=== PATIENT | male | born 1945 | race Two or more races ===

== ENCOUNTER 2024-05-12 17:52 | Inpatient (IN) | payer OTHER ==
[~2024-05-12] VITALS: Ht 188 cm; Wt 90.7 kg
[2024-05-12] MEDS ORDERED: diphenhydrAMINE HCL 50 MG/ML VIAL ONE (19:53)
[2024-05-12] MEDS ORDERED: OLANZAPINE 10 MG VIAL IM ONE (19:53)
[2024-05-12] MEDS: OLANZAPINE 10 MG VIAL IM ONE ×2 (19:59→23:30)
[2024-05-12] MEDS: diphenhydrAMINE HCL 50 MG/ML VIAL IM ONE (19:59)
[2024-05-12 20:48] LABS: BASOPHILS % (AUTO) 0.2 % (0.0-2.0); EOSINOPHILS # (AUTO) 0.1 K/uL (0.0-0.7); EOSINOPHILS % (AUTO) 1.6 % (0.0-6.0); HEMATOCRIT 40 % (39-51); LYMPHOCYTES # (AUTO) 1.5 K/uL (0.8-4.8); LYMPHOCYTES % (AUTO) 18.6 % (20.0-44.0); MEAN CORPUSCULAR HEMOGLOBIN 35 PG (26.0-33.0); MEAN CORPUSCULAR HGB CONC 35 g/dl (31.0-36.0); MEAN CORPUSCULAR VOLUME 98 fL (80-96); MONOCYTES # (AUTO) 0.7 K/uL (0.1-1.30); NEUTROPHILS # (AUTO) 5.7 K/uL (1.8-8.9); NEUTROPHILS % (AUTO) 70.6 % (43.0-81.0); PLATELET COUNT (AUTO) 158 K/uL (150-450); RED BLOOD CELL COUNT(AUTO) 4.06 MIL/uL (4.5-6.0); RED CELL DISTRIBUTION WIDTH 12.8 % (11.5-15.0)
[2024-05-12 21:02] LABS: CARBON DIOXIDE 26 mmol/L (21-32); CHLORIDE 105 mmol/L (98-107); GLUCOSE 114 mg/dL (74-106); POTASSIUM 4.1 mmol/L (3.5-5.1); SODIUM SERUM 138 mmol/L (136-145); UREA NITROGEN, BLOOD 12 mg/dL (7-18)
[2024-05-12 21:15] LABS: ALANINE AMINOTRANSFERASE 29 U/L (12-78); ALBUMIN 3.3 g/dL (3.4-5.0); ALKALINE PHOSPHATASE 75 U/L (46-116); ASPARTATE AMINOTRANSFERASE 30 U/L (15-37); BILIRUBIN,DIRECT 0.1 mg/dL (0.0-0.2); BILIRUBIN,TOTAL 0.3 mg/dL (0.2-1.0)
[2024-05-12 21:18] LABS: ACETAMINOPHEN <10 ug/ml (10-30); ALCOHOL, BLOOD < 3 mg/dL (0-10); SALICYLATE 0.7 mg/dL (2.8-20.0)
[2024-05-13] MEDS ORDERED: OLANZAPINE 10 MG VIAL IM ONE (00:11)
[2024-05-13 01:32] LABS: APPEARANCE,URINE CLEAR (CLEAR); BILIRUBIN,URINE NEGATIVE (NEGATIVE); BLOOD, URINE 1+ Ery/uL (NEGATIVE); COLOR,URINE YELLOW (YELLOW); KETONES,URINE NEGATIVE (NEGATIVE); LEUKOCYTE ESTERASE ,URINE NEGATIVE (NEGATIVE); NITRITE, URINE NEGATIVE (NEGATIVE); PH,URINE 6.5 (5.0-8.0); PROTEIN,URINE NEGATIVE (NEGATIVE); UGLUCOSE NEGATIVE (NEGATIVE); UROBILINOGEN,URINE 0.2 EU/dL (0.2)
[2024-05-13 01:33] LABS: ADD URINE CULTURE NO; BACTERIA,URINE Rare /HPF (None Seen); SQUAMOUS EPITHELIAL CELL,UR Few /HPF (None Seen); WBC,URINE 0-2 /HPF (0-3)
[2024-05-13 01:51] LABS: AMPHETAMINE, URINE NEGATIVE (NEGATIVE); BARBITURATE, URINE NEGATIVE (NEGATIVE); BENZODIAZEPINE, URINE NEGATIVE (NEGATIVE); CANNABINOID, URINE NEGATIVE (NEGATIVE); COCCAINE, URINE NEGATIVE (NEGATIVE); OPIATE, URINE NEGATIVE (NEGATIVE); PHENCYCLIDINE SCREEN,URINE NEGATIVE (NEGATIVE)
[2024-05-13 22:40] VITALS: BP 138/74; TEMP 98.7; O2SAT 97
[2024-05-13] MEDS ORDERED: MAG HYDROX/AL HYDROX/SIMETH 30 ML UDC PO PRN (23:30)
[2024-05-13] MEDS ORDERED: clonazePAM 1 MG TABLET PO PRN (23:30)
[2024-05-13] MEDS ORDERED: ACETAMINOPHEN 325 MG TABLET PO PRN (23:30)
[2024-05-13] MEDS ORDERED: MAGNESIUM HYDROXIDE 30 ML UDC PO PRN (23:30)
[2024-05-13] MEDS ORDERED: TEMAZEPAM 7.5 MG CAPSULE PO PRN (23:30)
[2024-05-13] MEDS: BLOOD SUGAR DIAGNOSTIC 1 EACH STRIP IN ONE (23:35)
[2024-05-14] MEDS: TEMAZEPAM 7.5 MG CAPSULE PO PRN (00:35)
[2024-05-14 08:00] VITALS: BP 139/85; TEMP 97.8; O2SAT 96
[2024-05-14] MEDS ORDERED: DONEPEZIL 5 MG TABLET PO SCH (08:00)
[2024-05-14] MEDS: QUETIAPINE FUMARATE 25 MG TABLET PO SCH (08:40)
[2024-05-14] MEDS: MEMANTINE HCL 5 MG TABLET PO SCH (08:40)
[2024-05-14] MEDS: diphenhydrAMINE HCL 50 MG/ML VIAL IM ONE (11:49)
[2024-05-14] MEDS: OLANZAPINE 10 MG VIAL IM ONE (11:49)
[2024-05-14] MEDS ORDERED: diphenhydrAMINE HCL 50 MG/ML VIAL IM PRN (12:00)
[2024-05-14 16:00] VITALS: BP 98/62; TEMP 97.9; O2SAT 98
[2024-05-14 20:00] VITALS: BP 114/66; TEMP 97.6; O2SAT 98
[2024-05-14] MEDS: DONEPEZIL 5 MG TABLET PO SCH (21:16)
[2024-05-14] MEDS: QUETIAPINE FUMARATE 100 MG TABLET PO SCH (21:17)
[2024-05-15 08:00] VITALS: BP 115/68; TEMP 97.8; O2SAT 98
[2024-05-15] MEDS: MEMANTINE HCL 5 MG TABLET PO SCH (08:45)
[2024-05-15] MEDS: QUETIAPINE FUMARATE 25 MG TABLET PO SCH (08:47)
[2024-05-15] MEDS: DIVALPROEX SODIUM 125 MG TABLET.DR PO SCH (13:00)
[2024-05-15 16:00] VITALS: BP 142/76; TEMP 97.9; O2SAT 98
[2024-05-15 16:49] LABS: BASOPHILS % (AUTO) 0.1 % (0.0-2.0); EOSINOPHILS % (AUTO) 0.1 % (0.0-6.0); HEMATOCRIT 42 % (39-51); HEMOGLOBIN 14.3 g/dL (13.5-17.5); LYMPHOCYTES # (AUTO) 1.9 K/uL (0.8-4.8); LYMPHOCYTES % (AUTO) 10.2 % (20.0-44.0); MEAN CORPUSCULAR HEMOGLOBIN 34 PG (26.0-33.0); MEAN CORPUSCULAR HGB CONC 34 g/dl (31.0-36.0); MEAN CORPUSCULAR VOLUME 102 fL (80-96); MONOCYTES % (AUTO) 10.7 % (2.0-12.0); NEUTROPHILS # (AUTO) 14.7 K/uL (1.8-8.9); NEUTROPHILS % (AUTO) 78.9 % (43.0-81.0); PLATELET COUNT (AUTO) 153 K/uL (150-450); RED BLOOD CELL COUNT(AUTO) 4.18 MIL/uL (4.5-6.0); RED CELL DISTRIBUTION WIDTH 13.7 % (11.5-15.0); WHITE BLOOD COUNT (AUTO) 18.6 K/uL (4.3-11.0)
[2024-05-15 17:24] LABS: CALCIUM, SERUM 8.9 mg/dL (8.5-10.1)
[2024-05-16 08:00] VITALS: BP 109/72; TEMP 98.4; O2SAT 99
[2024-05-16] MEDS: MEMANTINE HCL 5 MG TABLET PO ONE (12:45)
[2024-05-16] MEDS: QUETIAPINE FUMARATE 25 MG TABLET PO ONE (12:45)
[2024-05-16 16:00] VITALS: BP 118/98; TEMP 98.4; O2SAT 97
[2024-05-16 20:25] VITALS: BP 116/73; TEMP 98.3; O2SAT 97
[2024-05-17 08:00] VITALS: BP 107/66; TEMP 97.9; O2SAT 98
[2024-05-17] MEDS: QUETIAPINE FUMARATE 25 MG TABLET PO SCH (13:26)
[2024-05-17 16:00] VITALS: BP 110/69; TEMP 97.9; O2SAT 97
[2024-05-17 20:13] VITALS: BP 125/70; TEMP 98.7; O2SAT 96
[2024-05-18 20:09] VITALS: BP 122/101; TEMP 97.9; O2SAT 96
[2024-05-19 07:35] LABS: BASOPHILS # (AUTO) 0.1 K/uL (0.0-0.2); BASOPHILS % (AUTO) 0.8 % (0.0-2.0); EOSINOPHILS # (AUTO) 0.3 K/uL (0.0-0.7); EOSINOPHILS % (AUTO) 4.9 % (0.0-6.0); HEMATOCRIT 40 % (39-51); HEMOGLOBIN 13.7 g/dL (13.5-17.5); LYMPHOCYTES # (AUTO) 2.6 K/uL (0.8-4.8); LYMPHOCYTES % (AUTO) 36.6 % (20.0-44.0); MEAN CORPUSCULAR HEMOGLOBIN 34 PG (26.0-33.0); MEAN CORPUSCULAR HGB CONC 35 g/dl (31.0-36.0); MEAN CORPUSCULAR VOLUME 99 fL (80-96); MONOCYTES % (AUTO) 13.6 % (2.0-12.0); NEUTROPHILS # (AUTO) 3.1 K/uL (1.8-8.9); NEUTROPHILS % (AUTO) 44.1 % (43.0-81.0); PLATELET COUNT (AUTO) 199 K/uL (150-450); RED BLOOD CELL COUNT(AUTO) 4.02 MIL/uL (4.5-6.0); RED CELL DISTRIBUTION WIDTH 12.7 % (11.5-15.0)
[2024-05-19] MEDS ORDERED: QUETIAPINE FUMARATE 25 MG TABLET PO SCH (09:00)
[2024-05-19] MEDS: DIVALPROEX SODIUM 125 MG TABLET.DR PO SCH (09:06)
[2024-05-19] MEDS: QUETIAPINE FUMARATE 25 MG TABLET PO SCH (09:06)
[2024-05-19] MEDS: risperiDONE 1 MG TABLET PO SCH (09:06)
[2024-05-19 16:00] VITALS: BP 112/90; TEMP 98.7; O2SAT 100
[2024-05-20 08:00] VITALS: BP 112/65; TEMP 97.7; O2SAT 95
[2024-05-20] MEDS: clonazePAM 0.5 MG TABLET PO PRN (08:07)
[2024-05-20 16:00] VITALS: BP 130/85; TEMP 98; O2SAT 100
[2024-05-20 20:00] VITALS: BP 107/71; TEMP 98.1; O2SAT 100
[2024-05-21 08:00] VITALS: BP 117/79; TEMP 98; O2SAT 98
== END 2024-05-21 13:00 | DRG 885 ==
LOC: ER 17:55 → GPS 05-13 20:48
PROVIDERS: ADMIT Nurse Practitioner Psychiatric/Mental Health
DX: F20.9 Schizophrenia, unspecified (principal); E46 Unspecified protein-calorie malnutrition; F02.82 Dementia in other diseases classified elsewhere, unspecified severity, with psychotic disturbance; F02.83 Dementia in other diseases classified elsewhere, unspecified severity, with mood disturbance; F02.84 Dementia in other diseases classified elsewhere, unspecified severity, with anxiety; F02.818 Dementia in other diseases classified elsewhere, unspecified severity, with other behavioral disturbance; F02.811 Dementia in other diseases classified elsewhere, unspecified severity, with agitation; F29 Unspecified psychosis not due to a substance or known physiological condition; E88.09 Other disorders of plasma-protein metabolism, not elsewhere classified; G30.9 Alzheimer's disease, unspecified; F32.A Depression, unspecified; R73.9 Hyperglycemia, unspecified; Z79.899 Other long term (current) drug therapy; Z91.148 Patient's other noncompliance with medication regimen for other reason; D72.829 Elevated white blood cell count, unspecified
CPT/HCPCS: 36415; 70450-TC; 80048-TC; 80061-TC; 80076-TC; 81001; 82962-TC; 85025-TC; 97112-TC; 97116-TC; 97530-TC; G0480; J1200; J3490

== ENCOUNTER 2024-05-29 16:32 | Inpatient (IN) | payer OTHER ==
[~2024-05-29] VITALS: Ht 188 cm; Wt 90.7 kg
[2024-05-29 17:36] LABS: BASOPHILS % (AUTO) 0.1 % (0.0-2.0); EOSINOPHILS % (AUTO) 0.1 % (0.0-6.0); HEMATOCRIT 36 % (39-51); HEMOGLOBIN 12.5 g/dL (13.5-17.5); LYMPHOCYTES # (AUTO) 0.9 K/uL (0.8-4.8); LYMPHOCYTES % (AUTO) 8.2 % (20.0-44.0); MEAN CORPUSCULAR HEMOGLOBIN 34 PG (26.0-33.0); MEAN CORPUSCULAR HGB CONC 34 g/dl (31.0-36.0); MEAN CORPUSCULAR VOLUME 99 fL (80-96); MONOCYTES # (AUTO) 1.6 K/uL (0.1-1.30); MONOCYTES % (AUTO) 14.8 % (2.0-12.0); NEUTROPHILS # (AUTO) 8.3 K/uL (1.8-8.9); NEUTROPHILS % (AUTO) 76.8 % (43.0-81.0); PLATELET COUNT (AUTO) 168 K/uL (150-450); RED BLOOD CELL COUNT(AUTO) 3.68 MIL/uL (4.5-6.0); RED CELL DISTRIBUTION WIDTH 13.2 % (11.5-15.0); WHITE BLOOD COUNT (AUTO) 10.8 K/uL (4.3-11.0)
[2024-05-29 17:49] LABS: ALANINE AMINOTRANSFERASE 42 U/L (12-78); ALBUMIN 2.7 g/dL (3.4-5.0); ALCOHOL, BLOOD < 3 mg/dL (0-10); ALKALINE PHOSPHATASE 77 U/L (46-116); ASPARTATE AMINOTRANSFERASE 49 U/L (15-37); BILIRUBIN,DIRECT 0.3 mg/dL (0.0-0.2); BILIRUBIN,TOTAL 0.8 mg/dL (0.2-1.0); CALCIUM, SERUM 8.4 mg/dL (8.5-10.1); CARBON DIOXIDE 25 mmol/L (21-32); CHLORIDE 104 mmol/L (98-107); CREATININE 1.5 mg/dL (0.6-1.3); GLUCOSE 110 mg/dL (74-106); POTASSIUM 4.1 mmol/L (3.5-5.1); SODIUM SERUM 139 mmol/L (136-145); TOTAL PROTEIN, SERUM 6.8 g/dL (6.4-8.2); UREA NITROGEN, BLOOD 30 mg/dL (7-18)
[2024-05-29 17:59] LABS: ACETAMINOPHEN <10 ug/ml (10-30)
[2024-05-29 20:44] LABS: APPEARANCE,URINE CLEAR (CLEAR); BILIRUBIN,URINE NEGATIVE (NEGATIVE); BLOOD, URINE 2+ Ery/uL (NEGATIVE); COLOR,URINE YELLOW (YELLOW); KETONES,URINE 1+ mg/dL (NEGATIVE); LEUKOCYTE ESTERASE ,URINE 2+ (NEGATIVE); NITRITE, URINE NEGATIVE (NEGATIVE); PROTEIN,URINE 1+ mg/dl (NEGATIVE); UGLUCOSE NEGATIVE (NEGATIVE)
[2024-05-29 20:51] LABS: AMPHETAMINE, URINE NEGATIVE (NEGATIVE); BARBITURATE, URINE NEGATIVE (NEGATIVE); BENZODIAZEPINE, URINE NEGATIVE (NEGATIVE); CANNABINOID, URINE NEGATIVE (NEGATIVE); COCCAINE, URINE NEGATIVE (NEGATIVE); OPIATE, URINE NEGATIVE (NEGATIVE); PHENCYCLIDINE SCREEN,URINE NEGATIVE (NEGATIVE)
[2024-05-29 21:01] LABS: ADD URINE CULTURE YES; RBC,URINE 21-50 /HPF (0-2); SQUAMOUS EPITHELIAL CELL,UR Few /HPF (None Seen); WBC,URINE 21-50 /HPF (0-3)
[2024-05-29 21:02] LABS: BACTERIA,URINE Moderate /HPF (None Seen)
[2024-05-29] MEDS: CEPHALEXIN MONOHYDRATE 500 MG CAPSULE PO ONE (21:08)
[2024-05-29] MEDS ORDERED: CEPHALEXIN MONOHYDRATE 500 MG CAPSULE PO ONE (21:08)
[2024-05-30] MEDS ORDERED: DONE5TAB7 PO (01:04)
[2024-05-30] MEDS ORDERED: RISP0.5T65 PO (01:05)
[2024-05-30] MEDS ORDERED: MEMA10TA PO (01:05)
[2024-05-30] MEDS ORDERED: QUET25TA PO (01:06)
[2024-05-30] MEDS ORDERED: DIVA-78 PO (01:08)
[2024-05-30 01:40] VITALS: BP 130/80; TEMP 97.9; O2SAT 98
[2024-05-30] MEDS ORDERED: TEMAZEPAM 7.5 MG CAPSULE PO PRN (02:30)
[2024-05-30] MEDS ORDERED: ACETAMINOPHEN 325 MG TABLET PO PRN (02:30)
[2024-05-30] MEDS ORDERED: MAGNESIUM HYDROXIDE 30 ML UDC PO PRN (02:30)
[2024-05-30] MEDS ORDERED: clonazePAM 0.5 MG TABLET PO PRN ×2 (02:30)
[2024-05-30] MEDS ORDERED: MAG HYDROX/AL HYDROX/SIMETH 30 ML UDC PO PRN (02:30)
[2024-05-30] MEDS: BLOOD SUGAR DIAGNOSTIC 1 EACH STRIP IN ONE (03:08)
[2024-05-30 08:00] VITALS: BP 126/72; TEMP 97.9; O2SAT 98
[2024-05-30] MEDS: MEMANTINE HCL 5 MG TABLET PO SCH (08:32)
[2024-05-30] MEDS: CEPHALEXIN MONOHYDRATE 500 MG CAPSULE PO SCH (08:32)
[2024-05-30 16:00] VITALS: BP 90/66; TEMP 98; O2SAT 96
[2024-05-30] MEDS: DONEPEZIL 5 MG TABLET PO SCH (21:57)
[2024-05-30] MEDS: risperiDONE 1 MG TABLET PO SCH (22:13)
[2024-05-30] MEDS ORDERED: DIVALPROEX SODIUM 250 MG TABLET.DR PO ONE (22:22)
[2024-05-30] MEDS: DIVALPROEX SODIUM 250 MG TABLET.DR PO SCH (22:26)
[2024-05-31 08:00] VITALS: BP 100/55; TEMP 97.8; O2SAT 97
[2024-05-31 15:10] VITALS: BP 100/67; TEMP 97.9; O2SAT 96
[2024-06-01 08:00] VITALS: BP 100/60; TEMP 97.9; O2SAT 100
[2024-06-01 08:04] LABS: CALCIUM, SERUM 8.2 mg/dL (8.5-10.1); CREATININE 1.1 mg/dL (0.6-1.3); POTASSIUM 3.5 mmol/L (3.5-5.1)
[2024-06-01 08:07] LABS: BASOPHILS % (AUTO) 0.4 % (0.0-2.0); EOSINOPHILS # (AUTO) 0.1 K/uL (0.0-0.7); EOSINOPHILS % (AUTO) 2.3 % (0.0-6.0); HEMATOCRIT 33 % (39-51); HEMOGLOBIN 11.5 g/dL (13.5-17.5); LYMPHOCYTES # (AUTO) 1.6 K/uL (0.8-4.8); LYMPHOCYTES % (AUTO) 24.1 % (20.0-44.0); MEAN CORPUSCULAR HEMOGLOBIN 34 PG (26.0-33.0); MEAN CORPUSCULAR HGB CONC 35 g/dl (31.0-36.0); MEAN CORPUSCULAR VOLUME 98 fL (80-96); MONOCYTES # (AUTO) 0.9 K/uL (0.1-1.30); MONOCYTES % (AUTO) 13.6 % (2.0-12.0); NEUTROPHILS # (AUTO) 3.8 K/uL (1.8-8.9); NEUTROPHILS % (AUTO) 59.6 % (43.0-81.0); PLATELET COUNT (AUTO) 218 K/uL (150-450); RED BLOOD CELL COUNT(AUTO) 3.38 MIL/uL (4.5-6.0); RED CELL DISTRIBUTION WIDTH 12.9 % (11.5-15.0); WHITE BLOOD COUNT (AUTO) 6.4 K/uL (4.3-11.0)
[2024-06-01] MEDS: PALIPERIDONE PALMITATE 156 MG/ML SYRINGE IM ONE (14:41)
[2024-06-01 16:00] VITALS: BP 117/83; TEMP 98.7; O2SAT 98
[2024-06-01] MEDS: TEMAZEPAM 7.5 MG CAPSULE PO PRN (21:15)
[2024-06-02 08:00] VITALS: BP 120/78; TEMP 98.7; O2SAT 99
[2024-06-02 16:00] VITALS: BP 100/68; TEMP 98.7; O2SAT 96
[2024-06-02 20:00] VITALS: BP 110/64; TEMP 98.5; O2SAT 97
[2024-06-03 08:00] VITALS: BP 115/74; TEMP 97.7; O2SAT 98
[2024-06-03 16:00] VITALS: BP 116/68; TEMP 98.2; O2SAT 100
[2024-06-03 20:00] VITALS: BP 110/67; TEMP 98.5; O2SAT 100
[2024-06-04 16:00] VITALS: BP 107/70; TEMP 98; O2SAT 97
[2024-06-04 19:55] VITALS: BP 105/49; TEMP 97.9; O2SAT 99
[2024-06-05 08:00] VITALS: BP 112/66; TEMP 98.5; O2SAT 96
[2024-06-05 16:00] VITALS: BP 105/66; TEMP 97.7; O2SAT 96
[2024-06-05 22:16] VITALS: BP 109/64; TEMP 97.7; O2SAT 96
[2024-06-06 08:00] VITALS: BP 115/57; TEMP 98.2; O2SAT 98
[2024-06-06 15:08] VITALS: BP 126/69; TEMP 98.4; O2SAT 98
[2024-06-06 20:38] VITALS: BP 117/63; TEMP 98.4; O2SAT 98
[2024-06-07 08:00] VITALS: BP 114/71; TEMP 98.2; O2SAT 100
[2024-06-07 16:00] VITALS: BP 122/82; TEMP 97.9; O2SAT 100
[2024-06-07] MEDS: PALIPERIDONE PALMITATE 117 MG/0.75 ML SYRINGE IM ONE (18:12)
[2024-06-07 22:20] VITALS: BP 126/70; TEMP 98.1; O2SAT 100
[2024-06-08 08:00] VITALS: BP 103/79; TEMP 97.7; O2SAT 100
== END 2024-06-08 13:05 | DRG 885 ==
LOC: ER 17:40 → GPS 05-30 01:08
PROVIDERS: ADMIT Nurse Practitioner Psychiatric/Mental Health; ATTEND Internal Medicine
DX: F20.9 Schizophrenia, unspecified (principal); N17.0 Acute kidney failure with tubular necrosis; F02.818 Dementia in other diseases classified elsewhere, unspecified severity, with other behavioral disturbance; N39.0 Urinary tract infection, site not specified; F02.84 Dementia in other diseases classified elsewhere, unspecified severity, with anxiety; F02.811 Dementia in other diseases classified elsewhere, unspecified severity, with agitation; E46 Unspecified protein-calorie malnutrition; G30.9 Alzheimer's disease, unspecified; N40.0 Benign prostatic hyperplasia without lower urinary tract symptoms; Z79.899 Other long term (current) drug therapy; Z73.6 Limitation of activities due to disability; B96.89 Other specified bacterial agents as the cause of diseases classified elsewhere; E86.9 Volume depletion, unspecified; Z91.148 Patient's other noncompliance with medication regimen for other reason
CPT/HCPCS: 36415; 80048-TC; 80061-TC; 80076-TC; 81001; 85025-TC; 87086-TC; 97112-TC; 97116-TC; 97530-TC; G0480; J2426

== ENCOUNTER 2024-07-24 18:45 | Inpatient (IN) | payer MEDICARE, OTHER ==
[~2024-07-24] VITALS: Ht 167.6 cm; Wt 81.3 kg
[~2024-07-24 18:45] MED LIST: DIVA-78 PO; DONE5TAB7 PO; MEMA10TA PO; QUET25TA PO; RISP0.5T65 PO
[2024-07-24] MEDS: IV NS 0.9% 1,000 ML BAG IV ONE (19:30)
[2024-07-24 19:40] LABS: BASOPHILS % (AUTO) 0.4 % (0.0-2.0); EOSINOPHILS # (AUTO) 0.1 K/uL (0.0-0.7); EOSINOPHILS % (AUTO) 0.6 % (0.0-6.0); HEMATOCRIT 43 % (39-51); HEMOGLOBIN 14.3 g/dL (13.5-17.5); LYMPHOCYTES # (AUTO) 1.9 K/uL (0.8-4.8); LYMPHOCYTES % (AUTO) 18.9 % (20.0-44.0); MEAN CORPUSCULAR HEMOGLOBIN 32 PG (26.0-33.0); MEAN CORPUSCULAR HGB CONC 33 g/dl (31.0-36.0); MEAN CORPUSCULAR VOLUME 98 fL (80-96); MONOCYTES # (AUTO) 1.1 K/uL (0.1-1.30); MONOCYTES % (AUTO) 10.7 % (2.0-12.0); NEUTROPHILS # (AUTO) 7.1 K/uL (1.8-8.9); NEUTROPHILS % (AUTO) 69.4 % (43.0-81.0); PLATELET COUNT (AUTO) 173 K/uL (150-450); RED BLOOD CELL COUNT(AUTO) 4.42 MIL/uL (4.5-6.0); RED CELL DISTRIBUTION WIDTH 14.6 % (11.5-15.0); WHITE BLOOD COUNT (AUTO) 10.2 K/uL (4.3-11.0)
[2024-07-24 19:45] LABS: APPEARANCE,URINE CLOUDY (CLEAR); BILIRUBIN,URINE NEGATIVE (NEGATIVE); BLOOD, URINE 2+ Ery/uL (NEGATIVE); COLOR,URINE YELLOW (YELLOW); KETONES,URINE 1+ mg/dL (NEGATIVE); LEUKOCYTE ESTERASE ,URINE 1+ (NEGATIVE); NITRITE, URINE POSITIVE (NEGATIVE); PROTEIN,URINE 1+ mg/dl (NEGATIVE); UGLUCOSE NEGATIVE (NEGATIVE); UROBILINOGEN,URINE 0.2 EU/dL (0.2)
[2024-07-24 19:54] LABS: ALANINE AMINOTRANSFERASE 52 U/L (12-78); ALBUMIN 3.2 g/dL (3.4-5.0); ALKALINE PHOSPHATASE 91 U/L (46-116); ASPARTATE AMINOTRANSFERASE 126 U/L (15-37); BILIRUBIN,DIRECT 0.2 mg/dL (0.0-0.2); BILIRUBIN,TOTAL 0.7 mg/dL (0.2-1.0); CALCIUM, SERUM 9.3 mg/dL (8.5-10.1); CARBON DIOXIDE 26 mmol/L (21-32); CHLORIDE 110 mmol/L (98-107); GLUCOSE 105 mg/dL (74-106); SODIUM SERUM 145 mmol/L (136-145); TOTAL PROTEIN, SERUM 6.8 g/dL (6.4-8.2); UREA NITROGEN, BLOOD 25 mg/dL (7-18)
[2024-07-24 20:02] LABS: ADD URINE CULTURE YES; BACTERIA,URINE 4+ /HPF (None Seen); WBC,URINE 51-80 /HPF (0-3)
[2024-07-24 20:15] LABS: SERUM AMMONIA 12 umol/L (11-32)
[2024-07-24] MEDS: CEFTRIAXONE 1GM BAG (ER ONLY) 50 ML IV ONE (21:30)
[2024-07-24] MEDS ORDERED: CEFTRIAXONE 1GM BAG (ER ONLY) 50 ML IV ONE (21:31)
[2024-07-24] MEDS ORDERED: ONDANSETRON HCL/PF 4 MG/2 ML VIAL IVP PRN (23:00)
[2024-07-24] MEDS ORDERED: ACETAMINOPHEN 325 MG TABLET PO PRN (23:00)
[2024-07-25] MEDS: DONEPEZIL 5 MG TABLET PO SCH (00:54)
[2024-07-25] MEDS: ENOXAPARIN SODIUM 40 MG/0.4 ML DISP.SYRIN SQ SCH (00:54)
[2024-07-25] MEDS: IV NS 0.9% 1,000 ML IV PRN (01:05)
[2024-07-25 07:29] LABS: BASOPHILS % (AUTO) 0.4 % (0.0-2.0); EOSINOPHILS # (AUTO) 0.1 K/uL (0.0-0.7); EOSINOPHILS % (AUTO) 0.5 % (0.0-6.0); HEMATOCRIT 42 % (39-51); LYMPHOCYTES # (AUTO) 1.6 K/uL (0.8-4.8); LYMPHOCYTES % (AUTO) 15.1 % (20.0-44.0); MEAN CORPUSCULAR HEMOGLOBIN 33 PG (26.0-33.0); MEAN CORPUSCULAR HGB CONC 33 g/dl (31.0-36.0); MEAN CORPUSCULAR VOLUME 98 fL (80-96); MONOCYTES # (AUTO) 1.3 K/uL (0.1-1.30); MONOCYTES % (AUTO) 12.6 % (2.0-12.0); NEUTROPHILS # (AUTO) 7.4 K/uL (1.8-8.9); NEUTROPHILS % (AUTO) 71.4 % (43.0-81.0); PLATELET COUNT (AUTO) 166 K/uL (150-450); RED BLOOD CELL COUNT(AUTO) 4.29 MIL/uL (4.5-6.0); RED CELL DISTRIBUTION WIDTH 14.3 % (11.5-15.0); WHITE BLOOD COUNT (AUTO) 10.4 K/uL (4.3-11.0)
[2024-07-25 07:44] LABS: CALCIUM, SERUM 9.3 mg/dL (8.5-10.1); CARBON DIOXIDE 26 mmol/L (21-32); CHLORIDE 113 mmol/L (98-107); CREATININE 0.9 mg/dL (0.6-1.3); GLUCOSE 94 mg/dL (74-106); MAGNESIUM 2.4 mg/dL (1.8-2.4); PHOSPHORUS 3.6 mg/dL (2.5-4.9); POTASSIUM 4.2 mmol/L (3.5-5.1); SODIUM SERUM 151 mmol/L (136-145); UREA NITROGEN, BLOOD 26 mg/dL (7-18)
[2024-07-25 08:18] VITALS: BP 146/90; TEMP 98.4; O2SAT 97
[2024-07-25] MEDS: DIVALPROEX SODIUM 500 MG TABLET.DR PO SCH (08:53)
[2024-07-25] MEDS: risperiDONE-M 0.5 MG TAB.RAPDIS PO SCH (08:53)
[2024-07-25] MEDS: MEMANTINE HCL 5 MG TABLET PO SCH (08:53)
[2024-07-25] MEDS: QUETIAPINE FUMARATE 25 MG TABLET PO SCH (08:54)
[2024-07-25] MEDS ORDERED: RISPERIDONE 0.25 MG TAB.RAPDIS PO SCH (09:00)
[2024-07-25] MEDS: IV D5/0.45 NACL 1,000 ML IV SCH (10:26)
[2024-07-25 19:00] VITALS: BP 125/86; TEMP 97.5; O2SAT 96
[2024-07-25] MEDS: CEFTRIAXONE 1 G in IV D5W 50 ML IV SCH (20:35)
[2024-07-25 21:52] VITALS: BP 144/79; TEMP 97.9; O2SAT 96
[2024-07-26 07:11] LABS: BASOPHILS % (AUTO) 0.3 % (0.0-2.0); EOSINOPHILS # (AUTO) 0.1 K/uL (0.0-0.7); EOSINOPHILS % (AUTO) 0.5 % (0.0-6.0); HEMATOCRIT 38 % (39-51); LYMPHOCYTES # (AUTO) 1.2 K/uL (0.8-4.8); LYMPHOCYTES % (AUTO) 11.5 % (20.0-44.0); MEAN CORPUSCULAR HEMOGLOBIN 33 PG (26.0-33.0); MEAN CORPUSCULAR HGB CONC 34 g/dl (31.0-36.0); MEAN CORPUSCULAR VOLUME 97 fL (80-96); MONOCYTES # (AUTO) 1.3 K/uL (0.1-1.30); MONOCYTES % (AUTO) 12.9 % (2.0-12.0); NEUTROPHILS # (AUTO) 7.6 K/uL (1.8-8.9); NEUTROPHILS % (AUTO) 74.8 % (43.0-81.0); PLATELET COUNT (AUTO) 170 K/uL (150-450); RED BLOOD CELL COUNT(AUTO) 3.91 MIL/uL (4.5-6.0); RED CELL DISTRIBUTION WIDTH 14.2 % (11.5-15.0); WHITE BLOOD COUNT (AUTO) 10.1 K/uL (4.3-11.0)
[2024-07-26 07:21] LABS: CALCIUM, SERUM 8.4 mg/dL (8.5-10.1); CREATININE 0.9 mg/dL (0.6-1.3); PHOSPHORUS 3.2 mg/dL (2.5-4.9); POTASSIUM 3.7 mmol/L (3.5-5.1)
[2024-07-26 08:36] VITALS: BP 135/76; TEMP 98.6; O2SAT 96
[2024-07-26] MEDS: IV D5/0.45 NACL 1,000 ML IV PRN (12:15)
[2024-07-26 16:11] VITALS: BP 138/87; TEMP 98.5; O2SAT 96
[2024-07-26 20:00] VITALS: BP 98/55; TEMP 98.6; O2SAT 95
[2024-07-27 04:54] LABS: ABG BASE EXCESS -0.4 mmol/L (-2.0-3.0); ABG OXYGEN SATURATION 92.6 % (94.0-98.0); ABG PCO2 32.7 mmHg (35.0-48.0); ABG PO2 66.5 mmHg (83.0-108.0); ABG TOTAL HEMOGLOBIN 13.4 G/dL (13.5-17.5); COHb 0.8 % (0.5-1.5); MetHb 0.3 % (0.0-1.5); O2Hb 91.6 % (94.0-97.0); SITE, ABG LEFT RADIAL
[2024-07-27 06:59] LABS: BASOPHILS % (AUTO) 0.2 % (0.0-2.0); HEMATOCRIT 37 % (39-51); HEMOGLOBIN 12.4 g/dL (13.5-17.5); LYMPHOCYTES # (AUTO) 1.3 K/uL (0.8-4.8); LYMPHOCYTES % (AUTO) 9.6 % (20.0-44.0); MEAN CORPUSCULAR HEMOGLOBIN 33 PG (26.0-33.0); MEAN CORPUSCULAR HGB CONC 34 g/dl (31.0-36.0); MEAN CORPUSCULAR VOLUME 98 fL (80-96); MONOCYTES # (AUTO) 1.3 K/uL (0.1-1.30); MONOCYTES % (AUTO) 9.8 % (2.0-12.0); NEUTROPHILS # (AUTO) 10.5 K/uL (1.8-8.9); NEUTROPHILS % (AUTO) 80.4 % (43.0-81.0); PLATELET COUNT (AUTO) 142 K/uL (150-450); RED BLOOD CELL COUNT(AUTO) 3.78 MIL/uL (4.5-6.0); RED CELL DISTRIBUTION WIDTH 14.5 % (11.5-15.0); WHITE BLOOD COUNT (AUTO) 13.1 K/uL (4.3-11.0)
[2024-07-27 07:10] LABS: CALCIUM, SERUM 8.9 mg/dL (8.5-10.1); CREATININE 1.1 mg/dL (0.6-1.3); MAGNESIUM 2.2 mg/dL (1.8-2.4); PHOSPHORUS 3.1 mg/dL (2.5-4.9); POTASSIUM 3.6 mmol/L (3.5-5.1)
[2024-07-27 08:00] VITALS: BP 108/64; TEMP 98.2; O2SAT 96
[2024-07-27 16:00] VITALS: BP 150/64; TEMP 98.2; O2SAT 94
[2024-07-27 19:59] VITALS: BP 146/81; TEMP 98.4; O2SAT 92
[2024-07-28 06:45] LABS: BASOPHILS % (AUTO) 0.2 % (0.0-2.0); EOSINOPHILS % (AUTO) 0.1 % (0.0-6.0); HEMATOCRIT 34 % (39-51); HEMOGLOBIN 11.3 g/dL (13.5-17.5); LYMPHOCYTES # (AUTO) 1.4 K/uL (0.8-4.8); LYMPHOCYTES % (AUTO) 14.1 % (20.0-44.0); MEAN CORPUSCULAR HEMOGLOBIN 33 PG (26.0-33.0); MEAN CORPUSCULAR HGB CONC 33 g/dl (31.0-36.0); MEAN CORPUSCULAR VOLUME 98 fL (80-96); MONOCYTES % (AUTO) 10.4 % (2.0-12.0); NEUTROPHILS # (AUTO) 7.5 K/uL (1.8-8.9); NEUTROPHILS % (AUTO) 75.2 % (43.0-81.0); PLATELET COUNT (AUTO) 129 K/uL (150-450); RED BLOOD CELL COUNT(AUTO) 3.48 MIL/uL (4.5-6.0); RED CELL DISTRIBUTION WIDTH 13.9 % (11.5-15.0)
[2024-07-28 07:15] LABS: CALCIUM, SERUM 9.1 mg/dL (8.5-10.1); PHOSPHORUS 2.5 mg/dL (2.5-4.9); POTASSIUM 3.6 mmol/L (3.5-5.1)
[2024-07-28 07:30] VITALS: BP 110/75; TEMP 99.1; O2SAT 95
[2024-07-28] MEDS: IV D5W 1,000 ML IV PRN (09:26)
[2024-07-28] MEDS ORDERED: ACETAMINOPHEN 650 MG/SUPP.RECT RC PRN (11:30)
[2024-07-28 14:45] VITALS: O2SAT 94
[2024-07-28 16:00] VITALS: BP 119/65; TEMP 97.7; O2SAT 98
[2024-07-28] MEDS: PIPERACILLIN /TAZOBACTAM 3.375 G in IV D5W 100 ML IV SCH (17:12)
[2024-07-28] MEDS: BLOOD SUGAR DIAGNOSTIC 1 EACH STRIP IN SCH (17:13)
[2024-07-28] MEDS ORDERED: PIPERACILLIN /TAZOBACTAM 3.375 G in IV D5W 50 ML IV SCH (18:00)
[2024-07-28 20:00] VITALS: BP 131/67; TEMP 98.4; O2SAT 95
[2024-07-28 20:44] VITALS: BP 131/67; TEMP 98.4; O2SAT 95
[2024-07-29 01:45] VITALS: O2SAT 96
[2024-07-29 06:40] LABS: BASOPHILS % (AUTO) 0.2 % (0.0-2.0); EOSINOPHILS # (AUTO) 0.1 K/uL (0.0-0.7); EOSINOPHILS % (AUTO) 1.1 % (0.0-6.0); HEMATOCRIT 33 % (39-51); HEMOGLOBIN 11.2 g/dL (13.5-17.5); LYMPHOCYTES # (AUTO) 1.4 K/uL (0.8-4.8); LYMPHOCYTES % (AUTO) 16.9 % (20.0-44.0); MEAN CORPUSCULAR HEMOGLOBIN 33 PG (26.0-33.0); MEAN CORPUSCULAR HGB CONC 34 g/dl (31.0-36.0); MEAN CORPUSCULAR VOLUME 98 fL (80-96); MONOCYTES # (AUTO) 0.9 K/uL (0.1-1.30); MONOCYTES % (AUTO) 10.4 % (2.0-12.0); NEUTROPHILS # (AUTO) 6.1 K/uL (1.8-8.9); NEUTROPHILS % (AUTO) 71.4 % (43.0-81.0); PLATELET COUNT (AUTO) 152 K/uL (150-450); RED BLOOD CELL COUNT(AUTO) 3.37 MIL/uL (4.5-6.0); RED CELL DISTRIBUTION WIDTH 14.4 % (11.5-15.0); WHITE BLOOD COUNT (AUTO) 8.6 K/uL (4.3-11.0)
[2024-07-29 07:02] LABS: CALCIUM, SERUM 8.7 mg/dL (8.5-10.1); MAGNESIUM 2.4 mg/dL (1.8-2.4); PHOSPHORUS 3.4 mg/dL (2.5-4.9); POTASSIUM 3.4 mmol/L (3.5-5.1)
[2024-07-29 07:29] VITALS: O2SAT 94
[2024-07-29] MEDS: POTASSIUM CL. PREMIX PERIPHER. 50 ML IV SCH (10:16)
[2024-07-29 16:34] VITALS: O2SAT 99
[2024-07-29 20:00] VITALS: BP 108/61; TEMP 98.2; O2SAT 98
[2024-07-30 03:45] VITALS: O2SAT 96
[2024-07-30 06:48] LABS: BASOPHILS % (AUTO) 0.3 % (0.0-2.0); EOSINOPHILS # (AUTO) 0.3 K/uL (0.0-0.7); EOSINOPHILS % (AUTO) 4.1 % (0.0-6.0); HEMATOCRIT 33 % (39-51); HEMOGLOBIN 11.1 g/dL (13.5-17.5); LYMPHOCYTES # (AUTO) 1.6 K/uL (0.8-4.8); LYMPHOCYTES % (AUTO) 20.4 % (20.0-44.0); MEAN CORPUSCULAR HEMOGLOBIN 33 PG (26.0-33.0); MEAN CORPUSCULAR HGB CONC 34 g/dl (31.0-36.0); MEAN CORPUSCULAR VOLUME 97 fL (80-96); MONOCYTES # (AUTO) 0.8 K/uL (0.1-1.30); NEUTROPHILS # (AUTO) 5.2 K/uL (1.8-8.9); NEUTROPHILS % (AUTO) 65.2 % (43.0-81.0); PLATELET COUNT (AUTO) 169 K/uL (150-450); RED BLOOD CELL COUNT(AUTO) 3.35 MIL/uL (4.5-6.0); WHITE BLOOD COUNT (AUTO) 7.9 K/uL (4.3-11.0)
[2024-07-30 07:10] LABS: CALCIUM, SERUM 8.4 mg/dL (8.5-10.1); CREATININE 0.9 mg/dL (0.6-1.3); MAGNESIUM 2.3 mg/dL (1.8-2.4); PHOSPHORUS 3.4 mg/dL (2.5-4.9); POTASSIUM 3.7 mmol/L (3.5-5.1)
[2024-07-30 08:00] VITALS: BP 130/62; TEMP 98.1; O2SAT 97
[2024-07-30 08:27] LABS: URINE SODIUM, RANDOM 25 mmol/l (40-220)
[2024-07-30 14:11] VITALS: O2SAT 99
[2024-07-30 17:35] VITALS: BP 136/88; TEMP 98.1; O2SAT 90
[2024-07-30 20:00] VITALS: BP_SYST 135; BP_SYST 136; BP_DIAS 79; TEMP 98.6; O2SAT 95
[2024-07-30 23:12] VITALS: O2SAT 97
[2024-07-30] MEDS: JEVITY 1.2 CAL 1,000 ML BOTTLE GT PRN (23:58)
[2024-07-31 06:43] VITALS: O2SAT 97
[2024-07-31 07:00] VITALS: BP 119/74; TEMP 98.4; O2SAT 100
[2024-07-31 07:24] LABS: BASOPHILS % (AUTO) 0.3 % (0.0-2.0); EOSINOPHILS # (AUTO) 0.3 K/uL (0.0-0.7); EOSINOPHILS % (AUTO) 2.9 % (0.0-6.0); HEMATOCRIT 34 % (39-51); HEMOGLOBIN 11.7 g/dL (13.5-17.5); LYMPHOCYTES # (AUTO) 1.8 K/uL (0.8-4.8); LYMPHOCYTES % (AUTO) 19.4 % (20.0-44.0); MEAN CORPUSCULAR HEMOGLOBIN 33 PG (26.0-33.0); MEAN CORPUSCULAR HGB CONC 34 g/dl (31.0-36.0); MEAN CORPUSCULAR VOLUME 96 fL (80-96); MONOCYTES # (AUTO) 0.9 K/uL (0.1-1.30); MONOCYTES % (AUTO) 9.8 % (2.0-12.0); NEUTROPHILS # (AUTO) 6.2 K/uL (1.8-8.9); NEUTROPHILS % (AUTO) 67.6 % (43.0-81.0); PLATELET COUNT (AUTO) 190 K/uL (150-450); RED BLOOD CELL COUNT(AUTO) 3.58 MIL/uL (4.5-6.0); RED CELL DISTRIBUTION WIDTH 13.9 % (11.5-15.0); WHITE BLOOD COUNT (AUTO) 9.2 K/uL (4.3-11.0)
[2024-07-31 07:42] LABS: ALBUMIN 2.3 g/dL (3.4-5.0); BILIRUBIN,TOTAL 0.7 mg/dL (0.2-1.0); CALCIUM, SERUM 9.1 mg/dL (8.5-10.1); CREATININE 0.9 mg/dL (0.6-1.3); MAGNESIUM 2.4 mg/dL (1.8-2.4); PHOSPHORUS 3.6 mg/dL (2.5-4.9); POTASSIUM 3.4 mmol/L (3.5-5.1); TOTAL PROTEIN, SERUM 6.2 g/dL (6.4-8.2)
[2024-07-31] MEDS: POTASSIUM CHLORIDE 20 MEQ POWDER PACKET NG SCH (10:23)
[2024-07-31 15:49] VITALS: O2SAT 98
[2024-07-31 16:00] VITALS: BP 124/80; TEMP 98.4; O2SAT 97
[2024-07-31 20:00] VITALS: BP 145/88; TEMP 97.3; O2SAT 95
[2024-08-01 00:43] VITALS: O2SAT 95
[2024-08-01 06:00] VITALS: O2SAT 95
[2024-08-01 06:48] LABS: BASOPHILS % (AUTO) 0.4 % (0.0-2.0); EOSINOPHILS # (AUTO) 0.3 K/uL (0.0-0.7); EOSINOPHILS % (AUTO) 2.9 % (0.0-6.0); HEMATOCRIT 36 % (39-51); HEMOGLOBIN 12.4 g/dL (13.5-17.5); LYMPHOCYTES # (AUTO) 1.9 K/uL (0.8-4.8); LYMPHOCYTES % (AUTO) 17.9 % (20.0-44.0); MEAN CORPUSCULAR HEMOGLOBIN 33 PG (26.0-33.0); MEAN CORPUSCULAR HGB CONC 34 g/dl (31.0-36.0); MEAN CORPUSCULAR VOLUME 97 fL (80-96); MONOCYTES # (AUTO) 1.3 K/uL (0.1-1.30); MONOCYTES % (AUTO) 11.6 % (2.0-12.0); NEUTROPHILS # (AUTO) 7.2 K/uL (1.8-8.9); NEUTROPHILS % (AUTO) 67.2 % (43.0-81.0); PLATELET COUNT (AUTO) 193 K/uL (150-450); RED BLOOD CELL COUNT(AUTO) 3.73 MIL/uL (4.5-6.0); RED CELL DISTRIBUTION WIDTH 14.5 % (11.5-15.0); WHITE BLOOD COUNT (AUTO) 10.8 K/uL (4.3-11.0)
[2024-08-01 07:06] LABS: CALCIUM, SERUM 8.8 mg/dL (8.5-10.1); CREATININE 0.9 mg/dL (0.6-1.3); MAGNESIUM 2.4 mg/dL (1.8-2.4); PHOSPHORUS 3.8 mg/dL (2.5-4.9); POTASSIUM 4.2 mmol/L (3.5-5.1)
[2024-08-01 08:00] VITALS: BP 90/74; TEMP 97.6; O2SAT 99
[2024-08-01 16:00] VITALS: BP 110/65; TEMP 98.3; O2SAT 100
[2024-08-01 20:00] VITALS: BP 106/80; TEMP 99.1; O2SAT 96
[2024-08-02 02:10] VITALS: O2SAT 96
[2024-08-02 07:07] LABS: BASOPHILS # (AUTO) 0.1 K/uL (0.0-0.2); BASOPHILS % (AUTO) 0.6 % (0.0-2.0); EOSINOPHILS # (AUTO) 0.4 K/uL (0.0-0.7); EOSINOPHILS % (AUTO) 4.5 % (0.0-6.0); HEMATOCRIT 35 % (39-51); LYMPHOCYTES # (AUTO) 1.5 K/uL (0.8-4.8); MEAN CORPUSCULAR HEMOGLOBIN 33 PG (26.0-33.0); MEAN CORPUSCULAR HGB CONC 35 g/dl (31.0-36.0); MEAN CORPUSCULAR VOLUME 96 fL (80-96); MONOCYTES # (AUTO) 1.1 K/uL (0.1-1.30); MONOCYTES % (AUTO) 11.7 % (2.0-12.0); NEUTROPHILS # (AUTO) 6.3 K/uL (1.8-8.9); NEUTROPHILS % (AUTO) 67.2 % (43.0-81.0); PLATELET COUNT (AUTO) 226 K/uL (150-450); RED BLOOD CELL COUNT(AUTO) 3.62 MIL/uL (4.5-6.0); WHITE BLOOD COUNT (AUTO) 9.3 K/uL (4.3-11.0)
[2024-08-02 07:15] LABS: CALCIUM, SERUM 9.2 mg/dL (8.5-10.1); CREATININE 1.1 mg/dL (0.6-1.3); MAGNESIUM 2.4 mg/dL (1.8-2.4); PHOSPHORUS 3.4 mg/dL (2.5-4.9); POTASSIUM 3.9 mmol/L (3.5-5.1)
[2024-08-02 07:30] VITALS: BP 121/74; TEMP 98.8; O2SAT 98
[2024-08-02] MEDS: THERAHONEY GEL 1.5 OZ TUBE TP SCH (10:49)
[2024-08-02 11:54] LABS: THYROID STIMULATING HORMONE 2.36 uIU/mL (0.358-3.74)
[2024-08-02 15:40] VITALS: O2SAT 97
[2024-08-02 16:05] VITALS: BP 126/77; TEMP 98.6; O2SAT 97
[2024-08-02 20:00] VITALS: BP_SYST 104; BP_SYST 108; BP_DIAS 68; TEMP 98.1; O2SAT 98; O2SAT 99
[2024-08-03 05:25] VITALS: O2SAT 95
[2024-08-03 06:42] LABS: BASOPHILS % (AUTO) 0.4 % (0.0-2.0); EOSINOPHILS # (AUTO) 0.4 K/uL (0.0-0.7); EOSINOPHILS % (AUTO) 4.1 % (0.0-6.0); HEMATOCRIT 37 % (39-51); HEMOGLOBIN 12.2 g/dL (13.5-17.5); LYMPHOCYTES # (AUTO) 1.5 K/uL (0.8-4.8); LYMPHOCYTES % (AUTO) 16.2 % (20.0-44.0); MEAN CORPUSCULAR HEMOGLOBIN 32 PG (26.0-33.0); MEAN CORPUSCULAR HGB CONC 33 g/dl (31.0-36.0); MEAN CORPUSCULAR VOLUME 96 fL (80-96); MONOCYTES # (AUTO) 1.1 K/uL (0.1-1.30); MONOCYTES % (AUTO) 11.9 % (2.0-12.0); NEUTROPHILS # (AUTO) 6.2 K/uL (1.8-8.9); NEUTROPHILS % (AUTO) 67.4 % (43.0-81.0); PLATELET COUNT (AUTO) 244 K/uL (150-450); RED CELL DISTRIBUTION WIDTH 14.3 % (11.5-15.0); WHITE BLOOD COUNT (AUTO) 9.2 K/uL (4.3-11.0)
[2024-08-03 07:03] LABS: CALCIUM, SERUM 9.1 mg/dL (8.5-10.1); CREATININE 0.9 mg/dL (0.6-1.3); MAGNESIUM 2.3 mg/dL (1.8-2.4); PHOSPHORUS 3.4 mg/dL (2.5-4.9); POTASSIUM 4.6 mmol/L (3.5-5.1)
[2024-08-03 08:00] VITALS: BP 122/72; TEMP 98.2; O2SAT 96
[2024-08-03 11:13] LABS: FOLIC ACID 6.2 ng/mL (>3.0)
[2024-08-03] MEDS ORDERED: AMOX-427 PO (12:16)
[2024-08-03 16:18] VITALS: BP_SYST 121; BP_SYST 122; BP_DIAS 72; BP_DIAS 86; TEMP 98.2; O2SAT 96
[2024-08-04 00:05] VITALS: BP 133/75; TEMP 98.1; O2SAT 100
[2024-08-04 06:56] LABS: INR 1.07 (0.91-1.10); PARTIAL THROMBOPLASTIN TIME 27.4 SEC (24.3-34.3); PROTHROMBIN TIME 11.3 SECS (9.2-11.1)
[2024-08-04 06:59] LABS: BASOPHILS % (AUTO) 0.3 % (0.0-2.0); EOSINOPHILS # (AUTO) 0.4 K/uL (0.0-0.7); HEMATOCRIT 35 % (39-51); HEMOGLOBIN 11.9 g/dL (13.5-17.5); LYMPHOCYTES # (AUTO) 1.3 K/uL (0.8-4.8); MEAN CORPUSCULAR HEMOGLOBIN 32 PG (26.0-33.0); MEAN CORPUSCULAR HGB CONC 34 g/dl (31.0-36.0); MEAN CORPUSCULAR VOLUME 96 fL (80-96); MONOCYTES # (AUTO) 0.7 K/uL (0.1-1.30); MONOCYTES % (AUTO) 9.4 % (2.0-12.0); NEUTROPHILS # (AUTO) 5.4 K/uL (1.8-8.9); NEUTROPHILS % (AUTO) 69.3 % (43.0-81.0); PLATELET COUNT (AUTO) 256 K/uL (150-450); RED BLOOD CELL COUNT(AUTO) 3.67 MIL/uL (4.5-6.0); RED CELL DISTRIBUTION WIDTH 14.1 % (11.5-15.0); WHITE BLOOD COUNT (AUTO) 7.9 K/uL (4.3-11.0)
[2024-08-04 07:12] LABS: CREATININE 0.9 mg/dL (0.6-1.3); MAGNESIUM 2.3 mg/dL (1.8-2.4); POTASSIUM 4.6 mmol/L (3.5-5.1)
[2024-08-04 08:00] VITALS: BP 114/100; TEMP 98.3; O2SAT 95
[2024-08-04 16:00] VITALS: BP 110/67; TEMP 97.2; O2SAT 94
[2024-08-04 20:00] VITALS: BP 117/66; TEMP 98.8; O2SAT 95
[2024-08-05] MEDS ORDERED: LACT-209 GT (06:52)
[2024-08-05 06:59] LABS: BASOPHILS % (AUTO) 0.5 % (0.0-2.0); EOSINOPHILS # (AUTO) 0.4 K/uL (0.0-0.7); EOSINOPHILS % (AUTO) 3.9 % (0.0-6.0); HEMATOCRIT 33 % (39-51); HEMOGLOBIN 11.2 g/dL (13.5-17.5); LYMPHOCYTES # (AUTO) 1.6 K/uL (0.8-4.8); LYMPHOCYTES % (AUTO) 17.9 % (20.0-44.0); MEAN CORPUSCULAR HEMOGLOBIN 33 PG (26.0-33.0); MEAN CORPUSCULAR HGB CONC 34 g/dl (31.0-36.0); MEAN CORPUSCULAR VOLUME 96 fL (80-96); MONOCYTES # (AUTO) 0.9 K/uL (0.1-1.30); MONOCYTES % (AUTO) 9.6 % (2.0-12.0); NEUTROPHILS # (AUTO) 6.1 K/uL (1.8-8.9); NEUTROPHILS % (AUTO) 68.1 % (43.0-81.0); PLATELET COUNT (AUTO) 254 K/uL (150-450); RED BLOOD CELL COUNT(AUTO) 3.42 MIL/uL (4.5-6.0)
[2024-08-05 07:04] LABS: INR 1.09 (0.91-1.10); PARTIAL THROMBOPLASTIN TIME 27.3 SEC (24.3-34.3); PROTHROMBIN TIME 11.5 SECS (9.2-11.1)
[2024-08-05 07:07] LABS: CALCIUM, SERUM 8.6 mg/dL (8.5-10.1); CREATININE 0.9 mg/dL (0.6-1.3); MAGNESIUM 2.3 mg/dL (1.8-2.4); PHOSPHORUS 3.4 mg/dL (2.5-4.9); POTASSIUM 4.1 mmol/L (3.5-5.1)
[2024-08-05 08:00] VITALS: BP 106/59; TEMP 98.7; O2SAT 100
[2024-08-05 08:01] VITALS: O2SAT 96
[2024-08-05 08:50] VITALS: BP 106/59; TEMP 98.7; O2SAT 100
[2024-08-05] MEDS ORDERED: ANESTHESIA TRAY IN PYXIS 1 EA TRAY MC ONE (10:41)
[2024-08-05 13:20] VITALS: BP 105/64; TEMP 98.2; O2SAT 95
[2024-08-05 16:00] VITALS: BP 128/75; TEMP 98.2; O2SAT 100
[2024-08-05 20:00] VITALS: BP 123/64; TEMP 98.2; O2SAT 95
[2024-08-06 06:11] LABS: VITAMIN B1 THIAMINE,WB 75.7 nmol/L (66.5-200.0)
[2024-08-06 06:46] LABS: BASOPHILS % (AUTO) 0.5 % (0.0-2.0); EOSINOPHILS # (AUTO) 0.3 K/uL (0.0-0.7); EOSINOPHILS % (AUTO) 4.4 % (0.0-6.0); HEMATOCRIT 33 % (39-51); HEMOGLOBIN 11.2 g/dL (13.5-17.5); LYMPHOCYTES # (AUTO) 1.4 K/uL (0.8-4.8); LYMPHOCYTES % (AUTO) 18.7 % (20.0-44.0); MEAN CORPUSCULAR HEMOGLOBIN 32 PG (26.0-33.0); MEAN CORPUSCULAR HGB CONC 34 g/dl (31.0-36.0); MEAN CORPUSCULAR VOLUME 96 fL (80-96); MONOCYTES # (AUTO) 0.7 K/uL (0.1-1.30); NEUTROPHILS # (AUTO) 4.9 K/uL (1.8-8.9); NEUTROPHILS % (AUTO) 67.4 % (43.0-81.0); PLATELET COUNT (AUTO) 257 K/uL (150-450); RED BLOOD CELL COUNT(AUTO) 3.47 MIL/uL (4.5-6.0); RED CELL DISTRIBUTION WIDTH 14.2 % (11.5-15.0); WHITE BLOOD COUNT (AUTO) 7.3 K/uL (4.3-11.0)
[2024-08-06 07:00] VITALS: BP 145/82; TEMP 98.6; O2SAT 95
[2024-08-06 07:10] LABS: CALCIUM, SERUM 8.8 mg/dL (8.5-10.1); MAGNESIUM 2.3 mg/dL (1.8-2.4); PHOSPHORUS 3.4 mg/dL (2.5-4.9)
[2024-08-06 08:00] VITALS: O2SAT 97
[2024-08-06 11:15] VITALS: O2SAT 98
[2024-08-06] MEDS ORDERED: JEVITY 1.2 CAL 1,000 ML BOTTLE GT PRN (12:00)
[2024-08-06] MEDS: JEVITY 1.2 CAL 1,000 ML BOTTLE GT PRN (13:13)
[2024-08-06] MEDS: ARGININE/GLUTAMINE/CALCIUM BMB 1 EACH POWD.PACK GT SCH (17:27)
[2024-08-06 20:00] VITALS: BP 100/60; TEMP 98.1; O2SAT 99
[2024-08-06 23:43] VITALS: O2SAT 98
[2024-08-07 06:53] LABS: BASOPHILS # (AUTO) 0.1 K/uL (0.0-0.2); BASOPHILS % (AUTO) 0.8 % (0.0-2.0); EOSINOPHILS # (AUTO) 0.5 K/uL (0.0-0.7); EOSINOPHILS % (AUTO) 7.1 % (0.0-6.0); HEMATOCRIT 34 % (39-51); HEMOGLOBIN 11.4 g/dL (13.5-17.5); LYMPHOCYTES # (AUTO) 1.7 K/uL (0.8-4.8); LYMPHOCYTES % (AUTO) 22.2 % (20.0-44.0); MEAN CORPUSCULAR HEMOGLOBIN 32 PG (26.0-33.0); MEAN CORPUSCULAR HGB CONC 34 g/dl (31.0-36.0); MEAN CORPUSCULAR VOLUME 96 fL (80-96); MONOCYTES # (AUTO) 0.7 K/uL (0.1-1.30); MONOCYTES % (AUTO) 9.5 % (2.0-12.0); NEUTROPHILS # (AUTO) 4.5 K/uL (1.8-8.9); NEUTROPHILS % (AUTO) 60.4 % (43.0-81.0); PLATELET COUNT (AUTO) 282 K/uL (150-450); RED BLOOD CELL COUNT(AUTO) 3.53 MIL/uL (4.5-6.0); WHITE BLOOD COUNT (AUTO) 7.5 K/uL (4.3-11.0)
[2024-08-07 07:28] LABS: CALCIUM, SERUM 8.7 mg/dL (8.5-10.1); CREATININE 0.8 mg/dL (0.6-1.3); MAGNESIUM 2.2 mg/dL (1.8-2.4); PHOSPHORUS 2.9 mg/dL (2.5-4.9); POTASSIUM 3.9 mmol/L (3.5-5.1)
[2024-08-07 08:00] VITALS: BP 116/72; TEMP 97.7; O2SAT 96
[2024-08-07 16:22] VITALS: BP 141/72; TEMP 97.7; O2SAT 94
[2024-08-07 20:00] VITALS: BP 121/83; TEMP 98.8; O2SAT 95
[2024-08-07 22:10] VITALS: O2SAT 97
[2024-08-08 09:08] VITALS: BP 124/66; TEMP 98.6; O2SAT 94
[2024-08-08 16:28] VITALS: BP 86/48; TEMP 99; O2SAT 98
[2024-08-08 21:01] VITALS: BP 122/78; TEMP 97.9; O2SAT 100
[2024-08-09 02:18] VITALS: O2SAT 96
[2024-08-09 08:00] VITALS: BP 101/66; TEMP 99; O2SAT 97
[2024-08-09 16:00] VITALS: BP 112/74; TEMP 99.4; O2SAT 97
[2024-08-09 20:00] VITALS: BP 107/73; TEMP 98.2; O2SAT 96
[2024-08-09 22:18] VITALS: O2SAT 96
[2024-08-10 05:00] VITALS: O2SAT 97
[2024-08-10] MEDS: NITROFURANTOIN/MONOHYDRATE MACROCRYSTALS 100 MG CAPSULE PO SCH (09:22)
[2024-08-10 20:00] VITALS: BP 108/74; TEMP 98.6; O2SAT 96
[2024-08-10 20:48] VITALS: O2SAT 91
[2024-08-10 21:14] VITALS: BP 133/67; TEMP 98.2; O2SAT 96
[2024-08-10 21:15] VITALS: BP 108/74; TEMP 98.6; O2SAT 96
[2024-08-11 01:55] VITALS: O2SAT 96
[2024-08-11 07:00] VITALS: BP 111/69; TEMP 97.3; O2SAT 97
[2024-08-11 10:05] VITALS: O2SAT 96
[2024-08-11 16:00] VITALS: BP 120/101; TEMP 98.2; O2SAT 94
[2024-08-11 20:00] VITALS: BP 91/76; TEMP 98.5; O2SAT 95
[2024-08-11 20:50] VITALS: O2SAT 93
[2024-08-12 01:57] VITALS: O2SAT 94
[2024-08-12 09:19] VITALS: O2SAT 96
[2024-08-12 14:05] VITALS: O2SAT 95
[2024-08-12 17:21] VITALS: O2SAT 96
[2024-08-12 20:00] VITALS: BP 115/68; TEMP 97.9; O2SAT 96
[2024-08-12 20:39] VITALS: O2SAT 94
[2024-08-13 07:17] LABS: CALCIUM, SERUM 9.4 mg/dL (8.5-10.1); CREATININE 0.8 mg/dL (0.6-1.3); MAGNESIUM 2.3 mg/dL (1.8-2.4); PHOSPHORUS 4.2 mg/dL (2.5-4.9); POTASSIUM 4.3 mmol/L (3.5-5.1)
[2024-08-13 07:25] LABS: BASOPHILS % (AUTO) 0.4 % (0.0-2.0); EOSINOPHILS # (AUTO) 0.3 K/uL (0.0-0.7); EOSINOPHILS % (AUTO) 3.2 % (0.0-6.0); HEMATOCRIT 37 % (39-51); HEMOGLOBIN 12.8 g/dL (13.5-17.5); LYMPHOCYTES # (AUTO) 1.9 K/uL (0.8-4.8); LYMPHOCYTES % (AUTO) 19.1 % (20.0-44.0); MEAN CORPUSCULAR HEMOGLOBIN 33 PG (26.0-33.0); MEAN CORPUSCULAR HGB CONC 34 g/dl (31.0-36.0); MEAN CORPUSCULAR VOLUME 96 fL (80-96); MONOCYTES # (AUTO) 1.2 K/uL (0.1-1.30); MONOCYTES % (AUTO) 12.1 % (2.0-12.0); NEUTROPHILS # (AUTO) 6.6 K/uL (1.8-8.9); NEUTROPHILS % (AUTO) 65.2 % (43.0-81.0); PLATELET COUNT (AUTO) 234 K/uL (150-450); RED BLOOD CELL COUNT(AUTO) 3.89 MIL/uL (4.5-6.0); RED CELL DISTRIBUTION WIDTH 14.4 % (11.5-15.0); WHITE BLOOD COUNT (AUTO) 10.1 K/uL (4.3-11.0)
[2024-08-13 15:18] VITALS: O2SAT 96
[2024-08-13 15:57] VITALS: BP 109/60; TEMP 98.5; O2SAT 97
== END 2024-08-13 18:15 | disposition hospice, inpatient (51) | DRG 177 ==
LOC: ER 18:53 → TELE 23:10 → MED 07-25
PROVIDERS: ADMIT Nurse Practitioner Acute Care; ATTEND Internal Medicine
PROC: 0DH63UZ Insertion of Feeding Device into Stomach, Percutaneous Approach (ICD-10-PCS; principal; 2024-08-05 11:00)
DX: J69.0 Pneumonitis due to inhalation of food and vomit (principal); G93.41 Metabolic encephalopathy; N17.0 Acute kidney failure with tubular necrosis; N39.0 Urinary tract infection, site not specified; F02.811 Dementia in other diseases classified elsewhere, unspecified severity, with agitation; F02.818 Dementia in other diseases classified elsewhere, unspecified severity, with other behavioral disturbance; E44.1 Mild protein-calorie malnutrition; D68.59 Other primary thrombophilia; E87.0 Hyperosmolality and hypernatremia; R62.7 Adult failure to thrive; G30.9 Alzheimer's disease, unspecified; F02.80 Dementia in other diseases classified elsewhere, unspecified severity, without behavioral disturbance, psychotic disturbance, mood disturbance, and anxiety; J15.9 Unspecified bacterial pneumonia; K29.70 Gastritis, unspecified, without bleeding; R13.10 Dysphagia, unspecified; Z51.5 Encounter for palliative care; Z79.899 Other long term (current) drug therapy; Z74.09 Other reduced mobility; F20.9 Schizophrenia, unspecified; E88.09 Other disorders of plasma-protein metabolism, not elsewhere classified; E66.01 Morbid (severe) obesity due to excess calories; Z68.28 Body mass index [BMI] 28.0-28.9, adult; J84.9 Interstitial pulmonary disease, unspecified; E86.9 Volume depletion, unspecified; B96.20 Unspecified Escherichia coli [E. coli] as the cause of diseases classified elsewhere; E86.0 Dehydration; E87.6 Hypokalemia; Z78.1 Physical restraint status; L98.9 Disorder of the skin and subcutaneous tissue, unspecified; L89.156 Pressure-induced deep tissue damage of sacral region
CPT/HCPCS: 31720; 36415; 36600; 43246; 71045-TC; 80048-TC; 80053-TC; 80076-TC; 81001; 82140-TC; 82607-TC; 82803-TC; 82962-TC; 83735-TC; 83921; 83935-TC; 84100-TC; 84300-TC; 84425; 84443-TC; 84484-TC; 85025-TC; 85610-TC; 85730-TC; 86850-TC; 87040-TC; 87086-TC; 87186-TC; 92526; 92611-TC; 94760-TC; 94761-TC; 94762-TC; 94799-TC; 97110-TC; 97112-TC; 97116-TC; 97530-TC; A4223; A4349; A6403; G0378; J0696; J1650; J2543; J2704; J3480; J3490; J7030; J7042; J7050; J7060; J7070